=== PATIENT | female | born 1980 | race Caucasian/White ===

== ENCOUNTER 2018-03-28 08:06 | Outpatient (CLI) | payer BC ==
--- NOTE | 2018-03-28 11:09 | ULT ---
PELVIC ULTRASOUND: Date: 03/28/18 HISTORY: Follow-up cyst. COMPARISON: None. FINDINGS: Real-time imaging of the pelvis was obtained transabdominally, as well as with an endovaginal probe. The uterus measures 6.9 cm in length. The endometrium is in the 5.0 mm range. Both the right and left adnexa are well visualized. There is a right ovarian cyst somewhat oblong sha pe measuring 1.5 x 2.5 cm. Smaller follicles are seen in the right and left adnexa. DOPPLER EVALUATION WITH SPECTRAL ANALYSIS: Normal flow is shown to both ovaries. IMPRESSION: 1.5 x 2.5 cm right ovarian cyst. POS: [facility]
== END 2018-03-28 08:07 | disposition home or self-care (01) ==
LOC: SCSULT 08:06
PROVIDERS: ATTEND Nurse Practitioner Family
DX: Z87.42 Personal history of other diseases of the female genital tract (principal); N83.201 Unspecified ovarian cyst, right side
CPT/HCPCS: 76856